=== PATIENT | male | born 1960 | race Caucasian/White ===

== ENCOUNTER 2018-11-10 22:14 | Emergency (ER) | payer MEDICAID ==
[~2018-11-10] VITALS: Ht 170.2 cm; Wt 50.0 kg
[2018-11-10 23:25] VITALS: BP 149/90
[2018-11-10] MEDS ORDERED: HYDROcodone/acetaminophen 5mg/325mg tablet PO ONE (23:25)
== END 2018-11-10 23:50 | disposition home or self-care (01) ==
LOC: ER 22:16
DX: R51 Headache (principal); M54.2 Cervicalgia; M25.511 Pain in right shoulder; Z86.73 Personal history of transient ischemic attack (TIA), and cerebral infarction without residual deficits; Z98.890 Other specified postprocedural states; W18.39XA Other fall on same level, initial encounter; Y93.89 Activity, other specified; Y92.89 Other specified places as the place of occurrence of the external cause; Y99.8 Other external cause status
CPT/HCPCS: 70450; 72125; 99284